=== PATIENT | female | born 1990 | race African-American/Black ===

== ENCOUNTER 2017-11-04 18:39 | Inpatient (IN) | payer OTHER ==
[~2017-11-04] VITALS: Ht 182.9 cm; Wt 99.8 kg
[~2017-11-04 18:39] MED LIST: ALBU0.0912 INH; ALBU0.0939 IH
[2017-11-04 18:46] VITALS: BP 142/84
--- NOTE | 2017-11-04 18:50 | NUR ---
PT AMBULATED TO ER BED 05
--- NOTE | 2017-11-04 18:52 | NUR ---
27/F BIB SELF. PT STATES "I'M HERE FOR A PSYCH EVAL. I'M DEPRESSED, SUICIDAL AND I TOOK A HANDFUL OF IBUPROFEN." PT STATES SHE WANTS TO HURT HERSELF, DENIES HOMICIDAL TENDENCIES. HX: ASTHMA, DEPRESSION. IBUPROFEN 4 HOURS AGO. DENIES N/V/D; SKIN IS PINK/WARM/DRY; AAOX4 WITH EVEN AND STEADY GAIT; LUNGS CLEAR BL. PT DENIES ANY FEVER, CP, SOB, OR COUGH AT THIS TIME; PATIENT STATES PAIN OF 0/10 AT THIS TIME. PATIENT POSITIONED FOR COMFORT; HOB ELEVATED; BEDRAILS UP X2; BED DOWN. ER MD MADE AWARE OF PT STATUS.
--- NOTE | 2017-11-04 18:55 | NUR ---
Patient in hospital gown. Personal belongings placed in belongings bag. Patient stated desire to harm self. Potentially harmful items removed from room. Awaiting ERMD. Will continue to monitor.
--- NOTE | 2017-11-04 19:02 | NUR ---
Contacted poison control, spoke to [facility] pharmacist; monitor for renal failure or acidosis, check kidney function, ASA and tylenol levels with a drug screen. Observe the patient for 4 hours and then repeat any abnormal labs in 2-3 hours.
--- NOTE | 2017-11-04 19:07 | NUR ---
Patient being evaluated by DR RAMON at bedside.
--- NOTE | 2017-11-04 19:08 | NUR ---
Pt report given to TONG MORRISON. Transfer of care at this time.
--- NOTE | 2017-11-04 19:12 | NUR ---
PATIENT RESTING AT THIS TIME. NO SIGNS OF DISTRESS.
[2017-11-04 19:24] LABS: BASOPHILS # (AUTO) 0.1 K/uL (0.00-0.22); BASOPHILS % (AUTO) 0.9 % (0.0-2.0); EOSINOPHILS # (AUTO) 0.1 K/uL (0-0.4); EOSINOPHILS % (AUTO) 1.4 % (0.0-4.0); HEMATOCRIT 34.4 % (36-48); HEMOGLOBIN 11.5 g/dL (12.0-16.0); LYMPHOCYTES # (AUTO) 1.9 K/uL (2.5-16.5); LYMPHOCYTES % (AUTO) 21.5 % (20.5-51.1); MEAN CORPUSCULAR HEMOGLOBIN 28 pg (27-31); MEAN CORPUSCULAR HGB CONC 33 g/dL (33-37); MEAN CORPUSCULAR VOLUME 84.7 fL (80-94); MONOCYTES # (AUTO) 0.5 K/uL (0.8-1.0); MONOCYTES % (AUTO) 5.4 % (1.7-9.3); NEUTROPHILS # (AUTO) 6.2 K/uL (1.8-7.7); NEUTROPHILS % (AUTO) 70.8 % (42.2-75.2); PLATELET COUNT (AUTO) 223 K/uL (140-450); RED BLOOD CELL COUNT(AUTO) 4.06 MIL/uL (4.20-5.40); RED CELL DISTRIBUTION WIDTH 13.8 % (11.6-13.7); WHITE BLOOD COUNT (AUTO) 8.8 K/uL (4.8-10.8)
[2017-11-04 19:35] LABS: ANION GAP 12.4 (8-16); CARBON DIOXIDE 27.1 mmol/L (21-32); CHLORIDE 105 mmol/L (98-107); CREATININE 0.9 mg/dL (0.6-1.3); GFR ARICAN-AMERICAN 97 mL/min (>90); GLUCOSE 81 mg/dL (74-106); POTASSIUM 3.5 mmol/L (3.5-5.1); SODIUM SERUM 141 mmol/L (136-145); UREA NITROGEN, BLOOD 12 mg/dL (7-18)
--- NOTE | 2017-11-04 19:40 | NUR ---
PATIENT PUT DOWN ON BOTH SIDE RAILS. PT EDUCATED ON SAFETY ISSUES.
[2017-11-04 19:41] LABS: ALBUMIN 3.6 g/dL (3.4-5.0); ASPARTATE AMINOTRANSFERASE 18 U/L (15-37); TOTAL BILIRUBIN 0.5 mg/dL (0.0-1.0)
[2017-11-04 19:42] LABS: ACETAMINOPHEN < 0.5 ug/ml (10-30); SALICYLATE < 2.8 mg/dL (2.8-20.0)
--- NOTE | 2017-11-04 20:12 | NUR ---
PATIENT RESTING AT THIS TIME. NO SIGNS OF DISTRESS.
--- NOTE | 2017-11-04 20:55 | NUR ---
Spoke to Nora, [facility], explained the only one taking voluntary from us now is [facility] (3 hospitals located in [place], [facility]) and unfortunately they don't take patients from [facility]. At the moment, we don't have hospitals in [facility] taking voluntary status.
--- NOTE | 2017-11-04 21:15 | NUR ---
PATIENT REFUSED IV, REFUSED TO PUT ON GOWN.
[2017-11-04] MEDS ORDERED: ONDANSETRON 4 MG/2 ML VIAL IM/IVP PRN (21:20)
[2017-11-04] MEDS ORDERED: DOCUSATE SODIUM 100 MG GELCAP PO PRN (21:20)
--- NOTE | 2017-11-04 21:30 | NUR ---
SULY FROM [facility] CALLED REGARDING PT ADMISSION.
--- NOTE | 2017-11-04 21:30 | NUR ---
Kvng chaves in ED - 11/04/17 at 2132 by AVI SULY DODSON REGARDING PT ADMISSION.
--- NOTE | 2017-11-04 21:45 | NUR ---
Patient will be admitted to care of DR. ENRIQUEZ. Admited to M/S. Will go to room 124A. Belongings list completed. Report to OSKAR MORRISON.
[2017-11-04 21:52] LABS: PROTHROMBIN TIME 10.9 secs (10.8-13.4)
[2017-11-04 22:00] LABS: FREE T4 (FREE THYROXINE) 1.38 ng/dL (0.76-1.46); MAGNESIUM 1.8 mg/dL (1.8-2.4); PHOSPHORUS 3.2 mg/dL (2.5-4.9); THYROID STIMULATING HORMONE 0.93 uIU/mL (0.34-3.74)
--- NOTE | 2017-11-04 22:00 | NUR ---
PT ARRIVED VIA WHEELCHAIR WITH RAILROAD OPERATING ENGINEER. RECEIVED REPORT AT PT BEDSIDE FROM RAILROAD OPERATING ENGINEER, PT IS A/OX4, ON ROOM AIR AT THE MOMENT. PT ABLE TO MAKE NEEDS KNOWN, ABLE TO FOLLOW COMMANDS. RESPIRATIONS EVEN AND UNLABORED. PT SKIN IS INTACT. PT REFUSES IV ACCESS. UPDATED BOARD. OBTAINED MRSA NARES SWAB. DISCUSSED PLAN OF CARE WITH PT, PT VERBALIZED UNDERSTANDING. VITAL SIGNS WITHIN NORMAL LIMITS. PT STABLE, NO SIGNS OF DISTRESS NOTED AT THIS TIME. BED IN LOWEST POSITION, BED ALARM ON. CALL LIGHT WITHIN REACH, WILL CONTINUE TO MONITOR.
[2017-11-04] MEDS ORDERED: MECLIZINE 25 MG TAB PO PRN (22:40)
[2017-11-04] MEDS: NACL 0.9% 1,000 ML IV SCH (22:50)
[2017-11-04] MEDS ORDERED: SUCRALFATE 1 GM TAB PO SCH (23:00)
--- NOTE | 2017-11-04 23:10 | NUR ---
GIOVANNI FROM [facility]ISON CONTROL CALLED AND ASKED ABOUT PT VITAL SIGNS AND LAB VALUES. AFTER HE GOT THEM HE EXPLAINED THAT PT SEEMS TO BE DOING FINE AND HE IS GOING AHEAD AND CLOSING THE CASE.
--- NOTE | 2017-11-04 23:30 | NUR ---
LET DR SAMUELS KNOW ABOUT PT REFUSING XRAY, CT, IV/IVF, AND MEDICATION.
[2017-11-04 23:36] VITALS: BP 112/54
--- NOTE | 2017-11-04 23:40 | NUR ---
PT UNCOOPERATIVE, REFUSED EKG AT THIS TIME, OSKAR MORRISON AWARE.
--- NOTE | 2017-11-05 | NUR ---
PT AWAKENS ONLY WHEN SHAKEN, DOES NOT WAKE UP TO NAME CALLING. PT STILL REFUSING IV START FOR IVF. PT REFUSED EKG WELL CT OF HEAD AND CHEST XRAY. GAVE PT A STERILE CUP FOR URINE SAMPLE AND INSTRUCTED ON USE, PT VERBALIZED UNDERSTANDING AND CLOSED HER EYES TO SLEEP AGAIN. DR SAMUELS MADE AWARE OF ALL REFUSALS.
--- NOTE | 2017-11-05 03:15 | NUR ---
PT STABLE, NO SIGNS OF DISTRESS NOTED AT THIS TIME. BED IN LOWEST POSITION, BED ALARM ON. CALL LIGHT WITHIN REACH, WILL CONTINUE TO MONITOR.
--- NOTE | 2017-11-05 06:20 | NUR ---
PT TRANSFERRED FROM ROOM 124-A TO ROOM 110-B.
--- NOTE | 2017-11-05 07:24 | NUR ---
ENDORSED PT TO DAY SHIFT NURSE FOR CONTINUITY OF CARE. PT IN STABLE CONDITION.
--- NOTE | 2017-11-05 07:25 | NUR ---
RECEIVED REPORT FROM SILVERING APPLICATOR NURSE OSKAR AT BEDSIDE FOR CONTINUITY OF CARE. PT IS AWAKE AND ORIENTED X4. INTRODUCED SELF AND UPDATED BOARD. DR. ENRIQUEZ CAME IN AND SPOKE WITH PT. PT STATED SHE HAS THOUGHTS OF HURTING HERSELF. VS: WNL. NO SOB. O2 SAT 100% ON RA. PT DENIES PAIN AT THIS TIME. NO SIGNS OF DISTRESS. 1:1 SITTER AT BEDSIDE. WILL CONTINUE CLOSE MONITORING.
[2017-11-05 08:00] VITALS: BP 111/69
[2017-11-05 08:31] LABS: BASOPHILS # (AUTO) 0.1 K/uL (0.00-0.22); BASOPHILS % (AUTO) 0.9 % (0.0-2.0); EOSINOPHILS # (AUTO) 0.2 K/uL (0-0.4); HEMATOCRIT 32.3 % (36-48); HEMOGLOBIN 10.8 g/dL (12.0-16.0); LYMPHOCYTES # (AUTO) 2.2 K/uL (2.5-16.5); LYMPHOCYTES % (AUTO) 36.5 % (20.5-51.1); MEAN CORPUSCULAR HEMOGLOBIN 28 pg (27-31); MEAN CORPUSCULAR HGB CONC 34 g/dL (33-37); MEAN CORPUSCULAR VOLUME 84.6 fL (80-94); MONOCYTES # (AUTO) 0.5 K/uL (0.8-1.0); MONOCYTES % (AUTO) 7.5 % (1.7-9.3); NEUTROPHILS # (AUTO) 3.1 K/uL (1.8-7.7); NEUTROPHILS % (AUTO) 52.1 % (42.2-75.2); PLATELET COUNT (AUTO) 279 K/uL (140-450); RED BLOOD CELL COUNT(AUTO) 3.82 MIL/uL (4.20-5.40); RED CELL DISTRIBUTION WIDTH 13.5 % (11.6-13.7)
[2017-11-05] MEDS ORDERED: SUCRALFATE 1 GM TAB PO SCH (09:00)
--- NOTE | 2017-11-05 09:35 | NUR ---
PT REFUSED SUCRALFATE. EXPLAINED BENEFITS OF MED. PT STILL REFUSED. STATED SHE HAD NO STOMACH DISCOMFORT. EATING BREAKFAST RIGHT NOW. 1:1 SITTER AT BEDSIDE. WILL CONTINUE TO MONITOR.
[2017-11-05 10:08] LABS: ANION GAP 13.2 (8-16); CARBON DIOXIDE 26.8 mmol/L (21-32); CREATININE 0.8 mg/dL (0.6-1.3)
--- NOTE | 2017-11-05 11:24 | NUR ---
PT SLEEPING IN BED WITH VISIBLE RESPIRATIONS. NO SIGNS OF DISTRESS. SITTER AT BEDSIDE. WILL CONTINUE TO MONITOR.
[2017-11-05] MEDS ORDERED: ESCITALOPRAM 20 MG TAB PO SCH (13:00)
[2017-11-05] MEDS ORDERED: OXcarbazepine 150 MG TAB PO SCH (13:00)
--- NOTE | 2017-11-05 15:24 | NUR ---
ADMINISTERED MEDS. PT TOLERATED WELL. EDUCATED PT ON ANTIDEPRESSANTS AND SIDE EFFECTS. TOOK MEDS AND WENT BACK TO SLEEP. URINE OBTAINED. WILL SEND TO LAB. NO SIGNS OF DISTRESS. SITTER AT BEDSIDE. WILL CONTINUE TO MONITOR.
[2017-11-05] MEDS: NACL 0.9% 1,000 ML IV SCH (15:30)
[2017-11-05 16:00] VITALS: BP 96/50
[2017-11-05 16:08] LABS: APPEARANCE,URINE CLEAR (CLEAR); BILIRUBIN,URINE NEGATIVE (NEGATIVE); BLOOD, URINE 3+ (NEGATIVE); COLOR,URINE YELLOW (YELLOW); LEUKOCYTE ESTERASE ,URINE NEGATIVE (NEGATIVE); NITRITE, URINE NEGATIVE (NEGATIVE); PH,URINE 6.5 (5.0-9.0); UGLUCOSE NEGATIVE (NEGATIVE)
[2017-11-05 16:21] LABS: RBC,URINE 3-10 (FEW) /HPF (0-5); WBC,URINE 0-5 (RARE) /HPF (0-5)
[2017-11-05 16:25] LABS: BARBITURATE, URINE NEG. ng/ml (NEG <=200); BENZODIAZEPINE, URINE NEG. ng/mL (NEG <=200); CANNABINOID, URINE POS. ng/mL (NEG <=50); COCAINE, URINE NEG. ng/mL (NEG <=300); OPIATE, URINE NEG. ng/mL (NEG <=2000); PHENCYCLIDINE SCREEN,URINE NEG. ng/mL (NEG <=25)
--- NOTE | 2017-11-05 17:10 | NUR ---
PT SLEEPING WITH NO COMPLAINTS AT THIS TIME. PT ASKED FOR LEMON CHIGNIK LAGOON SODA CALLED. FNS FOR SODA. NO SIGNS OF DISTRESS. SITTER AT BEDSIDE. WILL CONTINUE TO MONITOR.
--- NOTE | 2017-11-05 18:10 | NUR ---
PT WITH DR. GAMING FOR PSYCH CONSULT.
--- NOTE | 2017-11-05 19:06 | NUR ---
ENDORSED PT TO BRIDGE REPAIRER NURSE OSKAR AT BEDSIDE FOR CONTINUITY OF CARE. PT IN STABLE CONDITION.
--- NOTE | 2017-11-05 19:07 | NUR ---
RECEIVED REPORT AT PT BEDSIDE FROM DAY SHIFT RN, PT IS A/OX4, ON ROOM AIR. PT ABLE TO MAKE NEEDS KNOWN, ABLE TO FOLLOW COMMANDS. RESPIRATIONS EVEN AND UNLABORED. PT SKIN IS INTACT. NO IV ACCESS, PT REFUSES. UPDATED BOARD. DISCUSSED PLAN OF CARE WITH PT, PT VERBALIZED UNDERSTANDING. PT REFUSED V/S CHECK. PT STABLE, NO SIGNS OF DISTRESS NOTED AT THIS TIME. BED IN LOWEST POSITION, BED ALARM ON. CALL LIGHT WITHIN REACH, WILL CONTINUE TO MONITOR.
--- NOTE | 2017-11-05 20:18 | NUR ---
RECEIVED REPORT AT PT BEDSIDE FROM DAY SHIFT RN, PT IS Ben/RAGHU, ON ROOM AIR. PT ABLE TO MAKE NEEDS KNOWN, ABLE TO FOLLOW COMMANDS. RESPIRATIONS EVEN AND UNLABORED. PT SKIN IS INTACT. NO IV ACCESS, PT REFUSES. UPDATED BOARD. DISCUSSED PLAN OF CARE WITH PT, PT VERBALIZED UNDERSTANDING. PT REFUSED V/S CHECK. PT STABLE, NO SIGNS OF DISTRESS NOTED AT THIS TIME. BED IN LOWEST POSITION, BED ALARM ON. CALL LIGHT WITHIN REACH, WILL CONTINUE TO MONITOR. Addendum: 11/05/17 at 2020 by Carmen Palmoares RN PLEASE DISREGARD.
[2017-11-05] MEDS: OXcarbazepine 150 MG TAB PO SCH (20:38)
--- NOTE | 2017-11-06 | NUR ---
PT REFUSED NATANAEL SIGN CHECK.
--- NOTE | 2017-11-06 02:00 | NUR ---
NO SIGNS OF DISTRESS NOTED AT THIS TIME. BED IN LOWEST POSITION, BED ALARM ON. CALL LIGHT WITHIN REACH, WILL CONTINUE TO MONITOR.
--- NOTE | 2017-11-06 04:00 | NUR ---
PT RESTING, EASILY AROUSED. PT STABLE, NO SIGNS OF DISTRESS NOTED AT THIS TIME. BED IN LOWEST POSITION, BED ALARM ON. CALL LIGHT WITHIN REACH, WILL CONTINUE TO MONITOR.
--- NOTE | 2017-11-06 07:12 | NUR ---
ENDORSED PT TO DAY SHIFT RN FOR CONTINUITY OF CARE. PT IN STABLE CONDITION.
--- NOTE | 2017-11-06 07:13 | NUR ---
RECEIVED PATIENT REPORT AT BEDSIDE FOR CONTINUITY OF CARE. PATIENT ASLEEP AND AROUSABLE. NO IV ACCESS. RESPIRATIONS EVEN AND UNLABORED. NO SIGNS OF DISTRESS OR SOB NOTED ON ROOM AIR. SAFETY PRECAUTION IN PLACE, CALL LIGHT WITHIN REACH. WILL CONTINUE TO MONITOR PATIENT.
--- NOTE | 2017-11-06 08:00 | NUR ---
PATIENT EATING BREAKFAST, REFUSED TO ALLOW RN TO TAKE VITAL SIGNS.
[2017-11-06] MEDS: NACL 0.9% 1,000 ML IV SCH (08:10)
[2017-11-06] MEDS: OXcarbazepine 150 MG TAB PO SCH (08:46)
--- NOTE | 2017-11-06 08:46 | NUR ---
ORDERED MEDICATIONS ADMINISTERED. PATIENT TOLERATING THEM WELL. PATIENT WENT BACK TO RESTING IN BED AND SLEEPING, NO SIGNS OF DISTRESS OR SOB NOTED ON ROOM AIR. SAFETY PRECAUTION IN PLACE, CALL LIGHT WITHIN REACH. WILL CONTINUE TO MONITOR PATIENT.
[2017-11-06] MEDS ORDERED: ESCITALOPRAM 20 MG TAB PO SCH (09:00)
--- NOTE | 2017-11-06 09:11 | NUR ---
FAXED REVIEW TO [facility] [phone], ER REPORT, H&P, CONSULT, PROGRESS NOTES AND ORDER FOR ADMIT AND MEDICATIONS. PHONE [phone] X [phone] SHRADDHA.
--- NOTE | 2017-11-06 10:15 | NUR ---
PATIENT SLEEPING IN BED, RESPIRATIONS EVEN AND UNLABORED. NO SIGNS OF DISTRESS OR SOB NOTED ON ROOM AIR. SAFETY PRECAUTION IN PLACE, CALL LIGHT WITHIN REACH, WILL CONTINUE TO MONITOR PATIENT.
--- NOTE | 2017-11-06 10:35 | NUR ---
Called [facility] and spoke with Vince. No beds. Called [facility] and spoke Marylu. No beds. Called [facility] and spoke with Leoncio SEXTON. No beds. Called [facility] and spoke with Jody. No beds, possible discharges later today. Called [facility] and spoke with Glendy. No beds. Called [facility] and spoke with Josie. No beds. Called [facility] and spoke with Angela. No beds.
--- NOTE | 2017-11-06 11:20 | NUR ---
RN RECEIVED CALL FROM MARIBEL CHPAARRO, PATIENT RADHAOPED AND TOOK ALL OF HER BELONGINGS WITH HER.
--- NOTE | 2017-11-06 14:55 | NUR ---
PATIENT HAS BEEN SCREENED AND CATEGORIZED LOW NUTRITION RISK. PATIENT WILL BE SEEN WITHIN 7 DAYS OF ADMISSION. 11/11/[address]
== END 2017-11-06 11:20 | disposition left against medical advice (07) | DRG 812 ==
LOC: MED 18:39 → MTU 21:20
PROVIDERS: ADMIT General Practice; ATTEND General Practice
DX: T39.312A Poisoning by propionic acid derivatives, intentional self-harm, initial encounter (principal); G92 Toxic encephalopathy; F31.64 Bipolar disorder, current episode mixed, severe, with psychotic features; R45.851 Suicidal ideations; J45.909 Unspecified asthma, uncomplicated; F17.210 Nicotine dependence, cigarettes, uncomplicated; F41.0 Panic disorder [episodic paroxysmal anxiety]; F41.9 Anxiety disorder, unspecified; D64.9 Anemia, unspecified; F12.20 Cannabis dependence, uncomplicated; F43.10 Post-traumatic stress disorder, unspecified; Z91.410 Personal history of adult physical and sexual abuse; Z59.0 Homelessness; Y92.89 Other specified places as the place of occurrence of the external cause
CPT/HCPCS: 36415; 80048; 80053; 80305; 81001; 82150; 83036; 83690; 83735; 83880; 84100; 84436; 84439; 84443; 84479; 84484; 84703; 85025; 85610; 85730; 87081; 99285; G0480

== ENCOUNTER 2017-12-02 11:09 | Emergency (ER) | payer OTHER ==
[~2017-12-02] VITALS: Ht 182.9 cm; Wt 100.8 kg
[2017-12-02 11:17] VITALS: BP 118/67
[2017-12-02] MEDS ORDERED: PENICILLIN G BENZATHINE L-A 1.2 MU/2 ML SYR IM ONE (12:20)
[2017-12-02 13:05] VITALS: BP 132/69
[2017-12-06 08:44] LABS: CHLAMYDIA TRACHOMATIS AMP DNA NEGATIVE (NEGATIVE)
== END 2017-12-02 13:07 | disposition home or self-care (01) ==
LOC: MED 11:09
DX: R21 Rash and other nonspecific skin eruption (principal); M25.531 Pain in right wrist; J45.909 Unspecified asthma, uncomplicated; Z79.899 Other long term (current) drug therapy
CPT/HCPCS: 36415; 81002; 81025; 86592; 87491; 96372; 99284; J0561

== ENCOUNTER 2018-05-02 08:14 | Emergency (ER) | payer MEDICAID, OTHER ==
[~2018-05-02] VITALS: Ht 182.9 cm; Wt 100.7 kg
[2018-05-02 08:15] VITALS: BP 134/72
[2018-05-02 08:56] LABS: BASOPHILS % (AUTO) 0.1 % (0.0-2.0); EOSINOPHILS % (AUTO) 0.7 % (0.0-4.0); HEMATOCRIT 37.8 % (36-48); HEMOGLOBIN 12.4 g/dL (12.0-16.0); LYMPHOCYTES # (AUTO) 1.4 K/uL (2.5-16.5); LYMPHOCYTES % (AUTO) 20.9 % (20.5-51.1); MEAN CORPUSCULAR HEMOGLOBIN 30 pg (27-31); MEAN CORPUSCULAR HGB CONC 33 g/dL (33-37); MEAN CORPUSCULAR VOLUME 90.2 fL (80-94); MONOCYTES # (AUTO) 0.6 K/uL (0.8-1.0); MONOCYTES % (AUTO) 8.4 % (1.7-9.3); NEUTROPHILS # (AUTO) 4.8 K/uL (1.8-7.7); NEUTROPHILS % (AUTO) 69.9 % (42.2-75.2); PLATELET COUNT (AUTO) 220 K/uL (140-450); RED BLOOD CELL COUNT(AUTO) 4.19 MIL/uL (4.20-5.40); RED CELL DISTRIBUTION WIDTH 14.6 % (11.6-13.7); WHITE BLOOD COUNT (AUTO) 6.9 K/uL (4.8-10.8)
[2018-05-02 09:14] LABS: ALBUMIN 2.8 g/dL (3.4-5.0); ANION GAP 9.4 (8-16); CARBON DIOXIDE 27.8 mmol/L (21-32); CREATININE 0.5 mg/dL (0.6-1.3); POTASSIUM 4.2 mmol/L (3.5-5.1); TOTAL BILIRUBIN 0.1 mg/dL (0.0-1.0)
[2018-05-02] MEDS: NACL 0.9% 1,000 ML IV ONE (09:15)
[2018-05-02 10:20] LABS: APPEARANCE,URINE CLEAR (CLEAR); BILIRUBIN,URINE NEGATIVE (NEGATIVE); BLOOD, URINE NEGATIVE (NEGATIVE); COLOR,URINE YELLOW (YELLOW); LEUKOCYTE ESTERASE ,URINE NEGATIVE (NEGATIVE); NITRITE, URINE NEGATIVE (NEGATIVE); UGLUCOSE NEGATIVE (NEGATIVE)
[2018-05-02 11:06] VITALS: BP 128/70
== END 2018-05-02 11:06 | disposition home or self-care (01) ==
LOC: MED 08:14
DX: O26.891 Other specified pregnancy related conditions, first trimester (principal); O21.9 Vomiting of pregnancy, unspecified; R10.9 Unspecified abdominal pain; Z3A.14 14 weeks gestation of pregnancy; Z79.51 Long term (current) use of inhaled steroids
CPT/HCPCS: 36415; 76801; 80053; 81003; 81025; 84702; 85025; 86900; 86901; 96360; 96361; 99284; J7030; Q0092